=== PATIENT | female | born 1970 | race Two or more races ===

== ENCOUNTER 2020-12-17 08:27 | Emergency (ER) | payer OTHER ==
[2020-12-17 08:37] VITALS: BP 134/84; PULSE 74; TEMP 97.4; BMI 31.3
[2020-12-17] MEDS ORDERED: KETOROLAC TROMETHAMINE 60 MG/2 ML VIAL IM ONE (09:17)
[2020-12-17] MEDS ORDERED: ACETAMINOPHEN 325 MG TABLET (FP) PO ONE (09:17)
[2020-12-17] MEDS ORDERED: LIDOCAINE 5% TOPICAL PATCH TP ONE (09:17)
[2020-12-17] MEDS ORDERED: LIDOCAINE 5% TOPICAL PATCH ONE (09:19)
[2020-12-17] MEDS ORDERED: KETOROLAC TROMETHAMINE 15 MG/ML VIAL ONE (09:20)
[2020-12-17] MEDS ORDERED: ACETAMINOPHEN 500 MG TABLET (FP) ONE (09:20)
== END 2020-12-17 09:30 | disposition home or self-care (01) ==
LOC: JER 08:27
PROC: 3E0233Z Introduction of Anti-inflammatory into Muscle, Percutaneous Approach (ICD-10-PCS; principal; 2020-12-17)
DX: M54.5 Low back pain (principal)
CPT/HCPCS: 99284-25

== ENCOUNTER 2021-05-25 12:13 | Emergency (ER) | payer OTHER ==
[2021-05-25 12:50] VITALS: BP 110/60; PULSE 89; TEMP 98.9; BMI 29.2
[2021-05-25] MEDS ORDERED: IBUPROFEN 400 MG TABLET (FP) PO ONE ×2 (13:58→14:09)
[2021-05-25] MEDS ORDERED: DEXAMETHASONE LIQUID 0.5 MG/5 ML PO ONE (14:04)
[2021-05-25] MEDS ORDERED: DEXAMETHASONE SOD PHOSPHATE 10 MG/1 ML VIAL ONE (14:09)
== END 2021-05-25 15:32 | disposition home or self-care (01) ==
LOC: JER 12:13
DX: J06.9 Acute upper respiratory infection, unspecified (principal)
CPT/HCPCS: 87651; 87804; 87807; 99283-25; C9803; U0003; U0005

== ENCOUNTER 2023-06-06 08:02 | Observation (INO) | payer OTHER ==
[2023-06-06 09:34] LABS: EPI CELLS >36 /uL (0-25.1); HYALINE CASTS 0 /uL (0-3.1); URINE APPEARANCE CLEAR; URINE BACTERIA 233 /uL (0-1359); URINE BILIRUBIN NEGATIVE (NEGATIVE); URINE COLOR DK YELLOW; URINE GLUCOSE (UA) NEGATIVE (NEGATIVE); URINE KETONE NEGATIVE (NEGATIVE); URINE LEUK ESTERASE NEGATIVE (NEGATIVE); URINE NITRITE NEGATIVE (NEGATIVE); URINE PROTEIN 1+ (NEGATIVE); URINE WBC 10 /uL (0-25.8)
[2023-06-06 09:40] LABS: INR 1.12 (0.83-1.09)
[2023-06-06 09:41] LABS: EOS % 5.1 % (0-4.5); LYMPH % 22.2 % (8-40); MCH 29.5 pg (25.7-33.7); MCHC 32.4 g/dl (32.0-36.0); MEAN CELL VOLUME 90.9 fl (80-96); MEAN PLT VOLUME 8.1 fl (7.5-11.1); MONO % 12.1 % (3.8-10.2); NEUT % 59.6 % (42.8-82.8); PLATELET COUNT 379 10^3/uL (134-434); RBC 3.74 M/mm3 (3.60-5.2); RDW 14.8 % (11.6-15.6); WHITE BLOOD COUNT 6.1 K/mm3 (4.0-10.0)
[2023-06-06 09:43] LABS: ACTIVATED PTT 28.6 SECONDS (25.2-36.5)
[2023-06-06 10:37] LABS: CALCIUM 9.1 mg/dL (8.5-10.1)
[2023-06-06 10:38] LABS: ALBUMIN 3.2 g/dl (3.4-5.0); BLOOD UREA NITROGEN 11.1 mg/dL (7-18)
[2023-06-06 10:41] LABS: CREATININE 0.7 mg/dL (0.55-1.3)
[2023-06-06 10:43] LABS: BILIRUBIN,TOTAL 0.4 mg/dL (0.2-1); TOT PROT 7.2 g/dl (6.4-8.2)
[2023-06-06 10:46] LABS: N-TERMINAL BNP 16.3 pg/ml (5-125)
[2023-06-06 11:09] LABS: EPI CELLS 33 /uL (0-25.1); HYALINE CASTS 1 /uL (0-3.1); URINE APPEARANCE CLOUDY; URINE BACTERIA 301 /uL (0-1359); URINE BILIRUBIN NEGATIVE (NEGATIVE); URINE COLOR YELLOW; URINE GLUCOSE (UA) NEGATIVE (NEGATIVE); URINE KETONE NEGATIVE (NEGATIVE); URINE LEUK ESTERASE NEGATIVE (NEGATIVE); URINE NITRITE NEGATIVE (NEGATIVE); URINE PROTEIN 1+ (NEGATIVE); URINE WBC 9 /uL (0-25.8)
[2023-06-06 12:46] LABS: URINE RBC 80.9 /uL (0-23.9)
[2023-06-06 12:50] LABS: URINE RBC 87 /uL (0-23.9)
[2023-06-06] MEDS ORDERED: APIXABAN 5 MG TABLET PO ONE (13:27)
[2023-06-06] MEDS ORDERED: APIXABAN 5 MG TABLET ONE ×2 (13:44→22:19)
[2023-06-06] MEDS ORDERED: FUROSEMIDE 40 MG/4 ML INJECTABLE VIAL IVPUSH ONE (17:50)
[2023-06-06] MEDS ORDERED: GABAPENTIN 300 MG CAPSULE ONE (22:20)
[2023-06-06] MEDS ORDERED: ACYCLOVIR 200 MG CAPSULE ONE (22:20)
[2023-06-06] MEDS: GABAPENTIN 300 MG CAPSULE PO SCH (22:25)
[2023-06-06] MEDS: APIXABAN 5 MG TABLET PO SCH (22:25)
[2023-06-06] MEDS: ACYCLOVIR 400 MG TABLET PO SCH (22:25)
[2023-06-07 04:48] VITALS: BMI 31.3
[2023-06-07 04:58] VITALS: PULSE 70; RESP 18; TEMP 98.3
[2023-06-07 07:31] VITALS: BP 137/79
[2023-06-07 09:59] LABS: EOS % 5.5 % (0-4.5); HEMOGLOBIN 10.8 GM/dL (10.7-15.3); LYMPH % 21.8 % (8-40); MCHC 32.8 g/dl (32.0-36.0); MEAN CELL VOLUME 91.5 fl (80-96); MONO % 10.4 % (3.8-10.2); NEUT % 61.3 % (42.8-82.8); PLATELET COUNT 354 10^3/uL (134-434); RBC 3.61 M/mm3 (3.60-5.2); RDW 14.7 % (11.6-15.6); WHITE BLOOD COUNT 4.7 K/mm3 (4.0-10.0)
[2023-06-07 10:54] LABS: POTASSIUM 3.9 mmol/L (3.5-5.1)
[2023-06-07 11:06] LABS: ALBUMIN 2.7 g/dl (3.4-5.0); BLOOD UREA NITROGEN 8.4 mg/dL (7-18); MAGNESIUM 2.2 mg/dL (1.8-2.4)
[2023-06-07 11:08] LABS: BILIRUBIN,TOTAL 0.3 mg/dL (0.2-1); TOT PROT 6.3 g/dl (6.4-8.2)
[2023-06-07 11:09] LABS: CREATININE 0.6 mg/dL (0.55-1.3)
[2023-06-07] MEDS: GABAPENTIN 300 MG CAPSULE PO SCH (11:26)
[2023-06-07] MEDS: ACYCLOVIR 400 MG TABLET PO SCH (11:26)
[2023-06-07] MEDS: APIXABAN 5 MG TABLET PO SCH (11:27)
== END 2023-06-07 15:16 | disposition home or self-care (01) ==
LOC: EDSEX → JER 08:02 → EDSEX 14:09 → JERBED 14:09 → J7W 06-07 02:52
PROVIDERS: ADMIT Internal Medicine; ATTEND Nurse Practitioner Acute Care
DX: I82.813 Embolism and thrombosis of superficial veins of lower extremities, bilateral (principal); F64.0 Transsexualism; B00.9 Herpesviral infection, unspecified; R82.90 Unspecified abnormal findings in urine; R60.0 Localized edema; Z98.890 Other specified postprocedural states; Z29.89 Encounter for other specified prophylactic measures
CPT/HCPCS: 36415; 71046-TC-FY; 74177-TC; 80053; 81003; 83735; 83880; 84100; 84484; 85025; 85610; 85730; 87086; 87186; 93005; 93010; 93306-TC; 93970-TC; 99285-25; G0378

== ENCOUNTER 2023-06-21 14:38 | Emergency (ER) | payer OTHER ==
[2023-06-21 14:50] VITALS: TEMP 97.9; BMI 30.4
[2023-06-21 17:56] VITALS: BP 113/78; PULSE 78; RESP 19
== END 2023-06-21 19:14 | disposition home or self-care (01) ==
LOC: JER 14:38
DX: L98.498 Non-pressure chronic ulcer of skin of other sites with other specified severity (principal); L53.9 Erythematous condition, unspecified; N64.59 Other signs and symptoms in breast
CPT/HCPCS: 76642-TC-LT; 99284-25